=== PATIENT | male | born 1980 | race Two or more races ===

== ENCOUNTER 2018-05-26 17:47 | Emergency (ER) | payer MEDICAID, OTHER ==
[~2018-05-26] VITALS: Ht 170.2 cm; Wt 68.0 kg
[2018-05-26] MEDS ORDERED: TYLENOL EXTRA500 MG ORAL (18:42)
--- NOTE | 2018-05-26 18:42 | Emergency Room Report ---
History of Present Illness General Chief Complaint: Headache Source: Patient Present Illness HPI 38-year-old male patient presents ER complaining of headache for the past 3 days. Reports headache is not the worst of his life. Reports gradual onset of symptoms, denies aura. Reports feels like a vice is on his head. Denies vision changes or vomiting. Reports some nausea. denies vomiting symptoms. Denies sinus congestion. Denies fever, chest pain, shortness of breath, neck pain, other acute symptoms. Requesting to know if can get Botox to treat his headache. denies rhinorrhea. Denies tinnitus. Denies photophobia or phonophobia.denies worse headache of life. Denies injury or trauma. Allergies: Coded Allergies: Dust (Verified Allergy, Unknown, 05/26/18) Patient History Past Medical History: see triage record Reviewed Nursing Documentation: PMH: Agreed; PSxH: Agreed Nursing Documentation-PMH Past Medical History: No Stated History Review of Systems All Other Systems: negative except mentioned in HPI Physical Exam Vital Signs Date Time Temp Pulse Resp B/P (MAP) Pulse Ox O2 Delivery O2 Flow Rate FiO2 05/26/18 18:05 98.8 79 16 117/77 96 Room Air 98.8 Sp02 EP Interpretation: reviewed, normal General Appearance: well appearing, no apparent distress, alert, GCS 15, non- toxic Head: normocephalic, atraumatic Eyes: bilateral eye normal inspection, bilateral eye PERRL ENT: hearing grossly normal, normal pharynx, no angioedema, normal voice, TMs + canals normal, uvula midline, moist mucus membranes Neck: full range of motion Respiratory: lungs clear, normal breath sounds, no rhonchi, no respiratory distress, no accessory muscle use, no wheezing, speaking full sentences Cardiovascular #1: regular rate, rhythm, no edema Musculoskeletal: back normal, digits/nails normal, gait/station normal, normal range of motion, non-tender Neurologic: alert, oriented x3, responsive, quartz miner blasting III-XII nml as tested, motor strength/tone normal, SLR negative, sensory intact, cerebellar normal, normal gait, speech normal Psychiatric: mood/affect normal Skin: no rash Lymphatic: no adenopathy Medical Decision Making PA Attestation Dr. Humphrey is my supervising Physician whom patient management has been discussed with. Diagnostic Impression: Primary Impression: Tension headache ER Course Pt presents to ED c/o headache. DDX considered but are not limited to migraine, cluster SHOEMAKER, tension SHOEMAKER, meningitis, ICH, meningitis, HTN, influenza. Denies worst headache of life, low suspicion for SAH. VITAL SIGNS are WNL, patient is afebrile ER COURSE Physical exam and history consistent with tension headache. Provided Toradol and Zofran for symptom relief. Cranial nerves intact as tested, no focal neural deficits, no vision changes, EOMs intact, pupils equal and reactive, denies vomiting or vertigo, low suspicion for underlying pathology, does not require CT head scan at this time. Instructed patient to follow-up with PCP for further testing and imaging. Discuss referral neurology. Discuss Botox treatment for headaches at that time. Do not provide Botox treatment in the ER for headaches. Take melatonin for sleeping difficulty. Discuss symptoms with PCP. Reports pain symptoms improved. Patient reports pain improved. Patient is AOx3, neurologically intact, nontoxic appearing, and ambulatory independently with steady gait. OK for discharge. DISCHARGE: -Rx provided Tylenol At this time pt is stable for d/c to home. Patient is resting comfortably, in no acute distress, nontoxic appearing, talking and smiling. Will provide with patient care instructions and any necessary prescriptions. Patient to take medication as instructed. Care plan and follow-up instructions provided. Patient questions asked and answered. Patient instructed to follow-up with primary care provider in the next 3 days and discuss further referral with PCP to neurologist. ER precautions given. Patient instructed to return to ER immediately for any new or worsening of symptoms including but not limited to fever, neck stiffness , vision changes, and neurological symptoms. - Please note that this Emergency Department Report was dictated using [employer] attendant technology software, occasionally this can lead to erroneous entry secondary to interpretation by the dictation equipment. Last Vital Signs Date Time Temp Pulse Resp B/P (MAP) Pulse Ox O2 Delivery O2 Flow Rate FiO2 05/26/18 18:05 98.8 79 16 117/77 96 Room Air 98.8 Disposition: HOME, SELF-CARE Condition: Stable Scripts Acetaminophen* (TYLENOL EXTRA STRENGTH*) 500 Mg Tablet 500 MG ORAL Q8H PRN for Prn Headache/Temp > 101, #30 TAB 0 Refills Prov: Sanya Soto 05/26/18 Referrals: NON PHYSICIAN (PCP) Patient Instructions: Tension Headache Additional Instructions: Followup with primary care provider in 3 -5 days. Follow-up with neuro. Discuss botox for headache with PCP. Take medications as directed. Patient questions asked and answered. ER precautions given, patient instructed to return to ER immediately for any new or worsening of symptoms. Sanya Soto May 26, 2018 18:42
[2018-05-26] MEDS ORDERED: Ketorolac 30mg Inj IM ONE (18:45)
[2018-05-26 18:54] VITALS: BP 117/77
[2018-05-26 18:55] VITALS: BP 117/77
== END 2018-05-26 19:01 | disposition home or self-care (01) ==
LOC: EMR 18:24
DX: G44.209 Tension-type headache, unspecified, not intractable (principal)
CPT/HCPCS: 96372; 99283; J1885

== ENCOUNTER 2018-07-03 19:33 | Emergency (ER) | payer MEDICAID, OTHER ==
[~2018-07-03] VITALS: Ht 170.2 cm; Wt 68.0 kg
[~2018-07-03 19:33] MED LIST: TYLENOL EXTRA500 MG ORAL
[2018-07-03] MEDS ORDERED: NKM (19:54)
[2018-07-03 20:00] VITALS: BP 115/87
[2018-07-03] MEDS ORDERED: IBUPROFEN600 MG ORAL (20:10)
--- NOTE | 2018-07-04 14:27 | Emergency Room Report ---
History of Present Illness General Chief Complaint: Headache Source: Patient Present Illness HPI 38-year-old male presents ED for evaluation. Patient states having chills, headache, nausea with vomiting1 day. note some diarrhea. Denies any abdominal pain. Pain is dull, 7 out of 10, nonradiating. Denies photophobia or blurry vision. Denies neck pain. Denies sore throat or earache. Denies cough. Afebrile in triage. Denies sick contacts or recent travel. No other aggravating relieving factors. Denies any other associated symptoms Allergies: Coded Allergies: Dust (Verified Allergy, Unknown, 05/26/18) Patient History Past Medical History: none Past Surgical History: none Pertinent Family History: none Social History: Denies: smoking, alcohol use, drug use Immunizations: UTD Reviewed Nursing Documentation: PMH: Agreed; PSxH: Agreed Nursing Documentation-PMH Past Medical History: No Stated History Review of Systems All Other Systems: negative except mentioned in HPI Physical Exam Vital Signs Date Time Temp Pulse Resp B/P (MAP) Pulse Ox O2 Delivery O2 Flow Rate FiO2 07/03/18 19:50 98.3 70 18 115/87 98 Room Air 98.2 Sp02 EP Interpretation: reviewed, normal General Appearance: no apparent distress, alert, GCS 15, non-toxic Head: normocephalic, atraumatic Eyes: bilateral eye normal inspection, bilateral eye PERRL ENT: hearing grossly normal, normal pharynx, no angioedema, normal voice Neck: full range of motion, supple/symm/no masses Respiratory: chest non-tender, lungs clear, normal breath sounds, speaking full sentences Cardiovascular #1: regular rate, rhythm, no edema Cardiovascular #2: 2+ carotid (R), 2+ carotid (L), 2+ radial (R), 2+ radial (L) , 2+ dorsalis pedis (R), 2+ dorsalis pedis (L) Gastrointestinal: normal bowel sounds, non tender, soft, non-distended, no guarding, no rebound Rectal: deferred Genitourinary: normal inspection, no CVA tenderness Musculoskeletal: back normal, gait/station normal, normal range of motion, non- tender Neurologic: alert, oriented x3, responsive, motor strength/tone normal, sensory intact, speech normal Psychiatric: judgement/insight normal, memory normal, mood/affect normal, no suicidal/homicidal ideation Reflexes: 3+ bicep (R), 3+ bicep (L), 3+ tricep (R), 3+ tricep (L), 3+ knee (R) , 3+ knee (L) Skin: normal color, no rash, warm/dry, well hydrated Lymphatic: no adenopathy Medical Decision Making Diagnostic Impression: Primary Impression: Viral syndrome Additional Impression: Headache Qualified Codes: R51 - Headache ER Course Hospital Course 38-year-old M presents to ED complaining of chills + headache + vomiting Differential diagnoses include: URI, pharyngitis, otitis media, influenza Clinical course Patient placed on stretcher. After initial history, physical exam reveals a male in no acute distress. Bilateral TM unremarkable. No pharyngeal erythema or exudates. Lungs clear. No lymphadenopathy. Abdomen soft. No nuchal rigidity. Vital stable. Afebrile. Likely viral syndrome. also has diarrhea consistent with symptoms. course is self-limited. Reassurance given to patient. Patient can be safely discharged to home or close follow-up with PMD Diagnosis - viral syndrome, headache Stable and discharged home with prescriptions for motrin. drink plenty of fluids. Instructed to followup with PMD. Return to ED if symptoms recur or worsen Last Vital Signs Date Time Temp Pulse Resp B/P (MAP) Pulse Ox O2 Delivery O2 Flow Rate FiO2 07/03/18 20:14 98.3 16 121/66 99 Room Air 07/03/18 19:50 70 Status: improved Disposition: HOME, SELF-CARE Condition: Stable Scripts Ibuprofen* (MOTRIN*) 600 Mg Tablet 600 MG ORAL Q8H PRN for For Pain, #30 TAB 0 Refills Prov: Lan Carl MD 07/03/18 Referrals: [facility]ERR[facility] (PCP) Patient Instructions: Viral Respiratory Infection, [id number] Lan Carl MD Jul 04, 2018 14:27
== END 2018-07-03 20:10 | disposition home or self-care (01) ==
LOC: EMR 20:00
DX: R51 Headache (principal); B34.9 Viral infection, unspecified
CPT/HCPCS: 99282

== ENCOUNTER 2019-02-03 02:38 | Emergency (ER) | payer MEDICAID ==
[~2019-02-03] VITALS: Ht 170.2 cm; Wt 68.0 kg
[2019-02-03 02:38] VITALS: BP 143/67
[~2019-02-03 02:38] MED LIST changes: +IBUPROFEN600 MG ORAL; +NKM
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
[2019-02-03] MEDS ORDERED: NKM (02:39)
[2019-02-03] MEDS ORDERED: Morphine Sulfate 4mg/ml Inj (IV USE ONLY) IVP ONE (02:45)
--- NOTE | 2019-02-03 03:03 | NUR ---
ED Nurse Note: Patient tolerated cleaning well after medication administration.
[2019-02-03] MEDS ORDERED: IBUPROFEN600 MG ORAL (03:07)
[2019-02-03] MEDS ORDERED: SILVADENE20 GM TP (03:07)
[2019-02-03] MEDS ORDERED: HYDROCODON-ACE1 EA15 ORAL (03:07)
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
--- NOTE | 2019-02-03 03:30 | NUR ---
ED Nurse Note: Wounds cleaned and silvadene applied to areas. Patient fingers were wrapped with tune gauze.
[2019-02-03 03:42] VITALS: BP 143/67
--- NOTE | 2019-02-03 03:45 | NUR ---
ED Nurse Note: Patient cleared for discharge, shoes, socks and shorts provided before depature. PAtient IV was removed along with ID band. Patient is A&Ox4, ambulatory with steady gait, and has no s/s of acute distress. Patient discharged in stable condition, took all belongings, verbalized understanding of discharge instructions before departure.
== END 2019-02-03 03:42 | disposition home or self-care (01) ==
LOC: EDBD 02:38 → EMR 03:12
DX: T23.201A Burn of second degree of right hand, unspecified site, initial encounter (principal); T23.231A Burn of second degree of multiple right fingers (nail), not including thumb, initial encounter; T31.0 Burns involving less than 10% of body surface; W86.8XXA Exposure to other electric current, initial encounter; Y92.810 Car as the place of occurrence of the external cause
CPT/HCPCS: 96374; 96375; 99284; J2270; J2405